=== PATIENT | female | born 1970 | race Two or more races ===

== ENCOUNTER 2017-12-08 13:59 | Outpatient (CLI) | payer OTHER | END 2017-12-08 14:07 | disposition home or self-care (01) | LOC: SONOGRAMA 13:59 | DX: N95.0 Postmenopausal bleeding (principal) ==

== ENCOUNTER → 2017-12-12 | Outpatient (CLI) | payer OTHER | END | disposition home or self-care (01) | LOC: MAMO-SONO 14:16 | DX: N60.11 Diffuse cystic mastopathy of right breast (principal); N60.12 Diffuse cystic mastopathy of left breast; Z12.31 Encounter for screening mammogram for malignant neoplasm of breast ==

== ENCOUNTER 2018-01-15 11:04 | Outpatient (CLI) | payer OTHER | END 2018-01-15 11:11 | disposition home or self-care (01) | LOC: SONOGRAMA 11:04 | DX: N60.11 Diffuse cystic mastopathy of right breast (principal); N60.12 Diffuse cystic mastopathy of left breast ==

== ENCOUNTER 2018-01-26 09:39 | Outpatient (CLI) | payer OTHER | END 2018-01-26 09:46 | disposition home or self-care (01) | LOC: SONOGRAMA 09:39 | DX: N93.8 Other specified abnormal uterine and vaginal bleeding (principal) ==

== ENCOUNTER 2018-08-03 06:59 | Day surgery (SDC) | payer OTHER | END 2018-08-03 19:50 | disposition home or self-care (01) | LOC: CIR.AMB 06:59 | DX: D05.11 Intraductal carcinoma in situ of right breast (principal) ==

== ENCOUNTER 2021-12-20 09:46 | Outpatient (CLI) | payer OTHER | END 2021-12-20 09:49 | disposition home or self-care (01) | LOC: MAMO-SONO 09:46 | PROVIDERS: ATTEND Obstetrics & Gynecology | DX: Z12.31 Encounter for screening mammogram for malignant neoplasm of breast (principal); N60.11 Diffuse cystic mastopathy of right breast; N60.12 Diffuse cystic mastopathy of left breast ==

== ENCOUNTER 2022-12-27 07:46 | Outpatient (CLI) | payer OTHER | END 2022-12-27 07:53 | disposition home or self-care (01) | LOC: MAMO-SONO 07:46 | PROVIDERS: ATTEND Surgery | DX: N60.11 Diffuse cystic mastopathy of right breast (principal); N60.12 Diffuse cystic mastopathy of left breast; Z12.31 Encounter for screening mammogram for malignant neoplasm of breast ==

== ENCOUNTER → 2024-01-08 | Outpatient (CLI) | payer OTHER | END | disposition home or self-care (01) | LOC: MAMO-SONO 10:13 | PROVIDERS: ATTEND Surgery | DX: N60.11 Diffuse cystic mastopathy of right breast (principal); N60.12 Diffuse cystic mastopathy of left breast; D05.11 Intraductal carcinoma in situ of right breast ==

== ENCOUNTER → 2024-12-13 12:32 | Outpatient (CLI) | payer OTHER | END | disposition home or self-care (01) | LOC: EKG 12:32 | PROVIDERS: ATTEND Surgery | DX: Z01.818 Encounter for other preprocedural examination (principal) ==